=== PATIENT | female | born 1975 | race Hispanic/Latino ===

== ENCOUNTER 2018-01-08 15:30 | Emergency (ER) | payer SELFPAY ==
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
== END 2018-01-08 16:55 | disposition home or self-care (01) ==
LOC: NAV ERS 15:30
DX: S16.1XXA Strain of muscle, fascia and tendon at neck level, initial encounter (principal); M54.5 Low back pain; V44.1XXA Car passenger injured in collision with heavy transport vehicle or bus in nontraffic accident, initial encounter
CPT/HCPCS: 72125; 72131

== ENCOUNTER 2018-01-26 07:00 | Emergency (ER) | payer SELFPAY ==
[2018-01-26] MEDS ORDERED: Ketorolac Tromethamine 30 MG/ML VIAL ONE (07:21)
== END 2018-01-26 07:43 | disposition home or self-care (01) ==
LOC: NAV ERS 07:00
DX: M54.16 Radiculopathy, lumbar region (principal)
CPT/HCPCS: 96372; J1885